=== PATIENT | female | born 1965 | race Caucasian/White ===

== ENCOUNTER 2017-05-06 11:54 | Day surgery (SDC) | payer MEDICARE ==
[2017-05-04 10:32] LABS: HEMATOCRIT 38.7 % (36.0-48.0); HEMOGLOBIN 12.8 g/dL (12.0-16.0)
[2017-05-04 10:42] LABS: BUN (BLOOD UREA NITROGEN) 6 MG/DL (6-23); CALCIUM, SERUM 9.2 MG/DL (8.5-10.4); CHLORIDE, SERUM 106 MMOL/L (96-112); CO2 (CARBON DIOXIDE) 29 MMOL/L (24-34); CREATININE 0.84 MG/DL (0.55-1.02); GFR AFRICAN AMERICAN 92 ML/MIN (>=60); GFR NON AFRICAN AMERICAN 79 ML/MIN (>=60); GLUCOSE, SERUM 96 MG/DL (60-99); SODIUM, SERUM 140 MMOL/L (135-148)
[~2017-05-06] VITALS: Ht 162.6 cm; Wt 60.0 kg
--- NOTE | ~2017-05-06 | OP ---
Record Of Operation [facility] [address] [place]. [address] NAME: MARIE LLANES : 61 STATUS : [facility]#: [id number] AGE: 51 ADM/REG DATE : 05/06/17 MR#: [id number] REPORT SERV DATE: 05/06/17 DICTATED BY: Gaby MARTINEZ DATE: 05/06/17 REPORT STATUS : Draft TRANSCRIBED BY: MODL DATE: 05/06/17 DATE OF PROCEDURE: 05/06/2017 PREOPERATIVE DIAGNOSIS: Gross hematuria. POSTOPERATIVE DIAGNOSIS: Gross hematuria, indeterminate bladder lesions. PROCEDURE: Cystoscopy, bilateral retrograde pyelography, bladder biopsy x3, fulguration, exam under anesthesia. ANESTHESIA: General with LMA. COMPLICATIONS: None. DRAINS: 20-Bruneian two-way Turcios catheter. BRIEF HISTORY: Ms. Llanes is a 51-year-old white female with recent gross hematuria. Urine culture was negative. Noncontrast CT was negative. She has an allergy to contrast dye. She is here for cysto, bilateral retrograde, possible bladder biopsy. The risks of bleeding, infection, anesthesia, injury to adjacent organs, need for postoperative catheter were all discussed. We also discussed the possible increased risk of infection due to the fact that there is no antibiotic she feels she could tolerate prophylactically. DESCRIPTION OF PROCEDURE: Under excellent general anesthesia, the patient was prepped and draped in a standard lithotomy position. Bimanual exam revealed an absent cervix, status post hysterectomy, but no vaginal masses. Her urethral meatus appeared normal. Cystoscopy was performed with 30 and 70-degree lenses, revealed a normal-appearing bladder except for 2 areas; one in the right posterior bladder wall showed two dark lesions and then some petechial-type lesion just medial to the left danyel-trigone. I saw no papillary tumors or other abnormalities. An 8-Bruneian cone-tipped catheter was used to perform bilateral retrograde pyelography, showed normal-caliber ureters without filling defect or obstruction and good drainage. I used a cold cup biopsy forceps and biopsied the 2 lesions on the right posterior bladder wall which were adjacent to each other and sent them as specimen one. I then biopsied the other lesion in the left bladder base. These were thoroughly fully fulgurated with the Bugbee electrode, and all bleeding was controlled. I plan to discharge Ms. Llanes as an outpatient with the following instructions. DISCHARGE INSTRUCTIONS: 1. Home today. 2. Okay for the patient to remove Turcios catheter in the morning. Alternatively, she can come to my office next week for removal. 3. Pyridium 200 mg one p.o. t.i.d. p.r.n. bladder pain #15. 4. Follow up in my office in one week to review pathology. Record Of Operation [address] [place]. [address] NAME: MARIE LLANES : 61 STATUS : [facility] PAT#: [id number] AGE: 51 ADM/REG DATE : 05/06/17 MR#: [id number] REPORT SERV DATE: 05/06/17 DICTATED BY: Gaby MARTINEZ DATE: 05/06/17 REPORT STATUS : Draft TRANSCRIBED BY: JOELLEN DATE: 05/06/17 ROSITA/JOELLEN Gaby Martinez M.D. / [id number] CC: Angela Fernandez
[~2017-05-06 11:54] MED LIST: LOM PO; XANAX1 MG PO; ZANTAC 150 PO
== END 2017-05-06 16:39 | disposition home or self-care (01) ==
LOC: SDC 11:54
PROC: BT141ZZ Fluoroscopy of Kidneys, Ureters and Bladder using Low Osmolar Contrast (ICD-10-PCS; 2017-05-06)
PROC: 0TBB8ZX Excision of Bladder, Via Natural or Artificial Opening Endoscopic, Diagnostic (ICD-10-PCS; principal; 2017-05-06 13:45)
DX: N30.21 Other chronic cystitis with hematuria (principal); K21.9 Gastro-esophageal reflux disease without esophagitis; K58.9 Irritable bowel syndrome, unspecified; I10 Essential (primary) hypertension; J44.9 Chronic obstructive pulmonary disease, unspecified; F41.9 Anxiety disorder, unspecified; Z87.891 Personal history of nicotine dependence; Z88.1 Allergy status to other antibiotic agents; Z88.0 Allergy status to penicillin; Z88.2 Allergy status to sulfonamides; Z88.5 Allergy status to narcotic agent; Z91.041 Radiographic dye allergy status; Z90.710 Acquired absence of both cervix and uterus; Z90.89 Acquired absence of other organs; Z80.52 Family history of malignant neoplasm of bladder
CPT/HCPCS: 74420; 80048; 85014; 85018; 88305; 93005; J2250; J2405; J3010; Q9967